=== PATIENT | female | born 2000 | race Caucasian/White ===

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

== ENCOUNTER 2020-09-01 23:45 | Emergency (ER) | payer MEDICAID ==
[~2020-09-01] VITALS: Ht 165.1 cm; Wt 97.5 kg
[2020-09-01 23:50] VITALS: BP_SYST 120
[2020-09-02 00:17] LABS: BILIRUBIN,URINE NEGATIVE (NEGATIVE); BLOOD, URINE NEGATIVE (NEGATIVE); CLARITY/URINE CLEAR (CLEAR); COLOR,URINE YELLOW (YELLOW); GLUCOSE,URINE NEGATIVE (NEGATIVE); KETONES,URINE NEGATIVE (NEGATIVE); LEUKOCYTE ESTERASE ,URINE NEGATIVE (NEGATIVE); NITRITE, URINE NEGATIVE (NEGATIVE); PH,URINE 7.5 (5.0-8.0); PROTEIN URINE NEGATIVE (NEGATIVE)
[2020-09-02 00:55] LABS: BASOPHILS # (AUTO) 0.1 K/uL (0.0-0.2); BASOPHILS % (AUTO) 0.7 % (0.0-2.0); EOSINOPHILS # (AUTO) 0.3 K/uL (0.0-0.4); EOSINOPHILS % (AUTO) 2.1 % (0.0-4.0); HEMATOCRIT 35.3 % (36-48); HEMOGLOBIN 11.9 g/dL (12.0-16.0); LYMPHOCYTES # (AUTO) 4.4 K/uL (1.0-5.5); LYMPHOCYTES % (AUTO) 34.2 % (20.5-51.5); MEAN CORPUSCULAR HEMOGLOBIN 29 pg (27-31); MEAN CORPUSCULAR HGB CONC 34 % (32-36); MEAN CORPUSCULAR VOLUME 86 fL (79.0-98.0); MONOCYTES # (AUTO) 1.1 K/uL (0.0-1.0); MONOCYTES % (AUTO) 8.8 % (1.7-9.3); NEUTROPHILS # (AUTO) 6.9 K/uL (1.8-7.7); NEUTROPHILS % (AUTO) 54.2 % (40.0-70.0); PLATELET COUNT (AUTO) 368 K/uL (130-430); RED BLOOD CELL COUNT(AUTO) 4.13 MIL/uL (4.2-6.2); RED CELL DISTRIBUTION WIDTH 13.4 % (9.0-15.0); WHITE BLOOD COUNT (AUTO) 12.8 K/uL (4.8-10.8)
[2020-09-02 01:00] LABS: CREATININE 0.91 mg/dL (0.55-1.30); POTASSIUM 3.7 mmol/L (3.5-5.1)
[2020-09-02 01:06] LABS: ALBUMIN 3.9 g/dL (3.4-4.8); TOTAL BILIRUBIN 0.3 mg/dL (0.0-1.0)
[2020-09-02] MEDS ORDERED: MAG HYDROX/AL HYDROX/SIMETH 30 ML, DICYCLOMINE HCL 20 MG, LIDOCAINE VISCOUS 2% 15ML (PO... PO ONE ×3 (05:00)
[2020-09-02] MEDS ORDERED: DICYCLOMINE HCL 10 MG/5 ML SOLUTION ONE (05:04)
[2020-09-02] MEDS ORDERED: MAG-AL HYDROX/SIMETH 30 ML UDC ONE (05:04)
[2020-09-02] MEDS ORDERED: LIDOCAINE VISCOUS 2%, 15 ML UDC ONE (05:05)
[2020-09-02 05:11] VITALS: BP_SYST 120
== END 2020-09-02 05:11 | disposition home or self-care (01) ==
LOC: SED 23:45
DX: K29.70 Gastritis, unspecified, without bleeding (principal)
CPT/HCPCS: 36415; 74176; 76376; 80053; 81003; 81025; 85025; 99284; J2001

== ENCOUNTER 2021-06-03 22:36 | Emergency (ER) | payer MEDICAID ==
[~2021-06-03] VITALS: Ht 167.6 cm; Wt 79.4 kg
[2021-06-03 23:04] VITALS: BP_SYST 145
--- NOTE | 2021-06-03 23:11 | NUR ---
Patient triaged and placed in waiting room. VSS and patient appears in no acute distress at this time. Accompanied by self, awaiting available bed, and MD notified of need for MSE.
--- NOTE | 2021-06-04 00:04 | NUR ---
pt to bed 3, awaiting for MD mata
--- NOTE | 2021-06-04 00:10 | NUR ---
Pt awake a/o x4. speech clear and coherent. family at bedside. pt c/o intermittent lower abdominal pain 08/16 x1 month. lbm 06/03/21, normal per pt. c/o nausea, denies vomiting / diarrhea / fever. states her menstrual period has been every week lasting 2-3 days x1 month. denies use of contraceptives. urine sent to lab. denies hematuria / dysuria. will continue to monitor.
[2021-06-04 00:14] LABS: BILIRUBIN,URINE NEGATIVE (NEGATIVE); BLOOD, URINE 3+ (NEGATIVE); CLARITY/URINE CLEAR (CLEAR); COLOR,URINE YELLOW (YELLOW); GLUCOSE,URINE NEGATIVE (NEGATIVE); KETONES,URINE NEGATIVE (NEGATIVE); LEUKOCYTE ESTERASE ,URINE NEGATIVE (NEGATIVE); NITRITE, URINE NEGATIVE (NEGATIVE); PROTEIN URINE NEGATIVE (NEGATIVE); UROBILINOGEN,URINE 0.2 (0.2-1.0)
[2021-06-04 00:28] LABS: BASOPHILS # (AUTO) 0.1 K/uL (0.0-0.2); BASOPHILS % (AUTO) 0.8 % (0.0-2.0); EOSINOPHILS # (AUTO) 0.5 K/uL (0.0-0.4); EOSINOPHILS % (AUTO) 3.9 % (0.0-4.0); HEMATOCRIT 38.4 % (36-48); HEMOGLOBIN 12.4 g/dL (12.0-16.0); LYMPHOCYTES # (AUTO) 4.4 K/uL (1.0-5.5); MEAN CORPUSCULAR HEMOGLOBIN 27 pg (27-31); MEAN CORPUSCULAR HGB CONC 32 % (32-36); MEAN CORPUSCULAR VOLUME 83 fL (79.0-98.0); MONOCYTES # (AUTO) 1.3 K/uL (0.0-1.0); MONOCYTES % (AUTO) 10.3 % (1.7-9.3); NEUTROPHILS # (AUTO) 6.3 K/uL (1.8-7.7); PLATELET COUNT (AUTO) 395 K/uL (130-430); RED BLOOD CELL COUNT(AUTO) 4.66 MIL/uL (4.2-6.2); RED CELL DISTRIBUTION WIDTH 13.7 % (9.0-15.0); WHITE BLOOD COUNT (AUTO) 12.6 K/uL (4.8-10.8)
[2021-06-04 00:37] LABS: HCG,QUAL RESULT NEGATIVE (NEGATIVE)
[2021-06-04 00:39] LABS: CALCIUM 8.8 mg/dL (8.4-11.0); CREATININE 0.64 mg/dL (0.55-1.30)
--- NOTE | 2021-06-04 00:41 | NUR ---
Dr Gonzalez at bedside for eval
[2021-06-04 00:50] LABS: ALBUMIN 3.9 g/dL (3.4-4.8); TOTAL BILIRUBIN 0.3 mg/dL (0.0-1.0)
[2021-06-04] MEDS ORDERED: IBUP-1970 PO (03:10)
[2021-06-04 03:36] VITALS: BP_SYST 145
--- NOTE | 2021-06-04 03:36 | NUR ---
Pt discharged. ACI reviewed with pt, verbalized understanding. rx to be filled. to follow up with pmd within the next 2-3 days or return to ed if condition worsens. vs stable. work note provided. ambulatory with steady gait unassisted. nad.
== END 2021-06-04 03:36 | disposition home or self-care (01) ==
LOC: SED 22:36
DX: N93.9 Abnormal uterine and vaginal bleeding, unspecified (principal); R10.84 Generalized abdominal pain; R03.0 Elevated blood-pressure reading, without diagnosis of hypertension; R74.01 Elevation of levels of liver transaminase levels
CPT/HCPCS: 36415; 76856-TC; 80053; 81003; 81025; 83690; 84702; 84703; 85025; 99284

== ENCOUNTER 2022-01-09 22:30 | Observation (INO) | payer MEDICAID ==
[~2022-01-09] VITALS: Ht 165.1 cm; Wt 85.7 kg
[~2022-01-09 22:30] MED LIST: IBUP-1970 PO
[2022-01-09] MEDS ORDERED: ONDANSETRON HCL 4 MG/2 ML VIAL IVP PRN (23:30)
[2022-01-09] MEDS ORDERED: LR 1,000 ML IV SCH (23:30)
== END 2022-01-10 02:35 | disposition home or self-care (01) ==
LOC: SPU 22:30
PROVIDERS: ADMIT Obstetrics & Gynecology; ATTEND Obstetrics & Gynecology
DX: O21.2 Late vomiting of pregnancy (principal); O26.892 Other specified pregnancy related conditions, second trimester; R10.9 Unspecified abdominal pain; R53.1 Weakness; Z3A.26 26 weeks gestation of pregnancy; Z88.0 Allergy status to penicillin
CPT/HCPCS: 96374; 81002; 96361; J2405; G0378 ×2; G0379; J7120